=== PATIENT | female | born 1990 ===

== ENCOUNTER 2021-09-08 10:52 | Outpatient (REF) | payer SELFPAY ==
--- NOTE | 2021-09-08 11:34 | MHC.AU.P13 ---
Hearing Instrument Check Date of Visit: 09/08/21 Right Ear: Wire Puller: Oticon Model: CROS MINI RITE T Serial Number: [id number] Repair Warranty: 12/06/2022 Loss and Damage Warranty: 12/06/2022 Battery Size: 312 Color: CHESTNUT Governor Assembler: 1-85 Type of Dome: 8mm TAVARES Type of Wax Guard: MINIFIT Dispensed By: [facility] Date of Fittin11/15/2019 Left Ear: Wire Puller: Oticon Model: OPN S 2 MINI RITE T Serial Number: [id number] Repair Warranty: 12/06/2022 Loss and Damage Warranty: 12/06/2022 Battery Size: 312 Color: CHESTNUT Governor Assembler: 1-60 Type of Dome: 8mm OPEN Type of Wax Guard: MINIFIT Dispensed By: [facility] Date of Fittin11/15/2019 Follow-Up Summary: Aids cleaned, wax guards changed - right aid sent to [facility] for repair/check. Recommendations: Recommendations: Patient will be contacted when materials have arrived. Diagnosis Code(s): Primary Diagnosis: H90.3 Bilateral Sensorineural Hearing Loss Signature: Provider: NATHANAEL Santiago-HIS
== END 2021-09-08 10:53 | disposition home or self-care (01) ==
LOC: HO.HAP 10:52
PROVIDERS: Visit Provider Internal Medicine
DX: Z13.89 Encounter for screening for other disorder (principal)

== ENCOUNTER 2021-09-22 13:24 | Outpatient (REF) | payer SELFPAY | END 2021-09-22 13:25 | disposition home or self-care (01) | LOC: HO.HAP 13:24 | PROVIDERS: Visit Provider Internal Medicine | DX: Z13.89 Encounter for screening for other disorder (principal) ==

== ENCOUNTER 2022-04-13 12:40 | Outpatient (REF) | payer SELFPAY | END 2022-04-13 12:41 | disposition home or self-care (01) | LOC: HO.HAP 12:40 | PROVIDERS: Visit Provider Internal Medicine | DX: Z13.89 Encounter for screening for other disorder (principal) ==

== ENCOUNTER 2022-10-05 14:50 | Outpatient (REF) | payer SELFPAY ==
--- NOTE | 2022-10-07 12:32 | MHC.AU.HA3 ---
Hearing Instrument Follow-Up- Binaural Date of Visit: 10/05/22 Right Ear: Make, Model, Color, Serial Number: Oticon CROS miniRITE T, #[id number], [employer] Safety Supervisor Repair Warranty: 12/06/2022, Safety Supervisor Loss and Damage Warranty: 12/06/2022 Battery Size: 312 Advance Agent/Slim Tube: 1-85 Type of Wax Guard: MINIFIT Dispensed By: [facility], Date of Fittin11/15/2019 Left Ear: Make, Model, Color, Serial Number: Oticon OPN S 2 miniRITE T, #[id number], [employer] Safety Supervisor Repair Warranty: 12/06/2022, Safety Supervisor Loss and Damage Warranty: 12/06/2022 Battery Size: 312 Advance Agent/Slim Tube: 1-85 Type of Wax Guard: MINIFIT Dispensed By: [facility], Date of Fittin11/15/2019 Follow-Up Summary: Patient would like to send her hearing aids out for clean/test before the end of the warranty. She was provided with a pair of loaner instruments (Oticon More 1 miniRITE R #[id number], Oticon CROS PX #[id number], Manager Enrollment). The current receivers were placed on the loaner instruments, as we did not have her size in stock. Requested size 1-85 right and left receivers for stock under warranty so they can be placed on the hearing aids when they return from repair. The loaner instruments were paired to her phone. When her hearing instruments return, they will need to be re-paired to her phone. Recommendations: Patient will be contacted when the hearing aids have returned. Diagnosis Code(s): Primary Diagnosis: H90.3 Bilateral Sensorineural Hearing Loss Signature: Provider: Elijah Connelly, [facility]
== END 2022-10-05 14:51 | disposition home or self-care (01) ==
LOC: HO.HAP 14:50
PROVIDERS: Visit Provider Internal Medicine
DX: Z13.89 Encounter for screening for other disorder (principal)
CPT/HCPCS: 92700

== ENCOUNTER 2022-10-22 14:11 | Outpatient (REF) | payer SELFPAY ==
--- NOTE | 2022-10-22 14:55 | MHC.AU.HA3 ---
Hearing Instrument Follow-Up- Binaural Date of Visit: 10/22/22 Right Ear: Make, Model, Color, Serial Number: Oticon CROS miniRITE T, #[id number], [employer] Accounts Payable Professional Repair Warranty: 12/06/2022 Accounts Payable Professional Loss and Damage Warranty: 12/06/2022 Battery Size: 312 Customer Leader/Slim Tube: 1/85 Earmold/Dome/CShell/SlimTip:8 mm mckenna dome Type of Wax Guard: MiniFit Dispensed By: [facility] Date of Fittin11/15/2019 Left Ear: Make, Model, Color, Serial Number: Oticon OPN S 2 miniRITE T, #[id number], [employer] Accounts Payable Professional Repair Warranty: 12/06/2022 Accounts Payable Professional Loss and Damage Warranty: 12/06/2022 Battery Size: 312 Customer Leader/Slim Tube: 1/85 Earmold/Dome/CShell/SlimTip: 8 mm open dome Type of Wax Guard: MiniFit Dispensed By: [facility] Date of Fittin11/15/2019 Follow-Up Summary: Meme picked up hearing aid and CROS. Reprogrammed to most recent settings from August 2021. Repaired to her cellphone and confirmed successful connection with phone call in office. Meme returned the loaners and charger tester. Recommendations: Hearing instrument follow-up or maintenance as needed. Diagnosis Code(s): Primary Diagnosis: H90.3 Bilateral Sensorineural Hearing Loss Signature: Provider: Elijah Beverly, [facility]
== END 2022-10-22 14:12 | disposition home or self-care (01) ==
LOC: HO.HAP 14:11
PROVIDERS: Visit Provider Internal Medicine
DX: Z13.89 Encounter for screening for other disorder (principal)

== ENCOUNTER 2023-11-18 14:15 | Outpatient (REF) | payer SELFPAY | END 2023-11-18 14:16 | disposition home or self-care (01) | LOC: HO.HAP 14:15 | PROVIDERS: Visit Provider Internal Medicine | DX: Z13.89 Encounter for screening for other disorder (principal) ==

== ENCOUNTER 2024-07-18 13:20 | Outpatient (REF) | payer SELFPAY ==
--- NOTE | 2024-07-19 13:57 | MHC.AU.HA3 ---
Hearing Instrument Follow-Up- Binaural Date of Visit: 07/18/24 Right Ear: Make, Model, Color, Serial Number: Salvador CROS L-R SN: [id number] Color: [place] [employer] Professor Repair Warranty: 07/05/2027 [employer] Professor Loss and Damage Warranty: 07/05/2027 Service Plan: 07/04/2025 Battery Size: Rechargeable Laboratory Worker/Slim Tube: 1C Earmold/Dome/CShell/SlimTip:Small open dome Type of Wax Guard: CeruShield Dispensed By: Date of Fittin07/04/2024 Left Ear: Make, Model, Color, Serial Number: Salvador Dongeo L70-R SN: [id number] Color: [employer] Professor Repair Warranty: 07/05/2027 [employer] Professor Loss and Damage Warranty: 07/05/2027 Service Plan: 07/04/2025 Battery Size: Rechargeable Laboratory Worker/Slim Tube: 1P Earmold/Dome/CShell/SlimTip: Acrylic SlimTip SN: [id number] Scott: 10/03/2024 Type of Wax Guard: CeruStop Dispensed By: Date of Fittin07/04/2024 Follow-Up Summary: Accompanied by mom, Krysta. Mom thinks Meme was hearing better with new HAs; however, Meme did not like sound quality. Difficulty acclimating, everything too loud, echo-y, overwhelming (e.g., could hear own footsteps). Hears random static noises. Battery only lasting 11-12 hours. Discussed balance between comfort and audibility, can make programming adjustments; however, Meme needs longer battery life. Wants rechargeable. Opted to switch to Oticon (18-20 hours according to Oticon vs 12 hours with Phonak). Initially switched to Phonak for use of Vivek. However, Meme never able to try Vivek On, as it was too difficult to acclimate to HAs alone. She would prefer Oticon rechargeable vs Phonak battery-powered for continued use with Vivek. Will return Phonak HAs and Vivek On for credit; however, did not bring Vivek On to this appointment - will drop off to commercial front load operator tomorrow. Once Phonak equipment is returned, will order Oticon CROS system. Discussed benefit of EM given severity of hearing loss; however, will start with dome to ease into transition to new HAs. Will reconsider EM in future. Recommendations: Patient will be contacted when materials have arrived. Diagnosis Code(s): Primary Diagnosis: H90.3 Bilateral Sensorineural Hearing Loss Signature: Provider: Elijah Beverly, CCC-A
== END 2024-07-18 13:21 | disposition home or self-care (01) ==
LOC: HO.HAP 13:20
PROVIDERS: Visit Provider Internal Medicine
DX: Z13.89 Encounter for screening for other disorder (principal)